=== PATIENT | male | born 1970 | race African-American/Black ===

== ENCOUNTER 2016-06-12 09:35 | Emergency (ER) | payer MEDICARE, OTHER ==
[2016-06-12 09:23] LABS: ASCORBIC ACID (UR NOT ORDER) NEG (NEG); BILIRUBIN, URINE NEGATIVE (NEG); ER URINALYSIS TAT 0 Hrs 20 Mins; KETONE, URINE TRACE MG/DL (NEG); LEUKOCYTE ESTERASE(NOT OR TRACE (NEG); NITRITE (URINE) NEG (NEG); WBC (NOT ORDERED) (RFLEX) 11 (0-5)
== END 2016-06-12 10:05 | disposition home or self-care (01) ==
LOC: ER 09:35
PROVIDERS: Nurse Practitioner
DX: M54.32 Sciatica, left side (principal); F17.200 Nicotine dependence, unspecified, uncomplicated
CPT/HCPCS: 81001; 96374; 99284; J1885

== ENCOUNTER 2016-06-21 11:01 | Emergency (ER) | payer MEDICARE, OTHER | END 2016-06-21 11:55 | disposition home or self-care (01) | LOC: ER 11:01 | DX: S30.0XXA Contusion of lower back and pelvis, initial encounter (principal); I10 Essential (primary) hypertension; F32.9 Major depressive disorder, single episode, unspecified; F17.200 Nicotine dependence, unspecified, uncomplicated; V89.2XXA Person injured in unspecified motor-vehicle accident, traffic, initial encounter | CPT/HCPCS: 72100; 72170; 99284; A9270-GY ==